=== PATIENT | male | born 1935 | race Caucasian/White ===

== ENCOUNTER 2021-06-09 13:00 | Outpatient (RCR) | payer MEDICARE, OTHER, SELFPAY | END 2021-06-21 08:00 | disposition home or self-care (01) | LOC: HO.PT 13:00 | PROVIDERS: PCP Internal Medicine; Visit Provider Urology | DX: R32 Unspecified urinary incontinence (principal) | CPT/HCPCS: 97110; 97112; 97140; 97162 ==